=== PATIENT | female | born 1965 | race Caucasian/White ===

== ENCOUNTER 2016-10-20 01:33 | Emergency (ER) | payer SELFPAY ==
[~2016-10-20] VITALS: Ht 162.6 cm; Wt 55.0 kg
[2016-10-20 01:36] VITALS: Ht 162.6 cm; Wt 55.0 kg
[2016-10-20] MEDS ORDERED: CEPH-443 PO (02:51)
[2016-10-20] MEDS ORDERED: IBUP-1542 PO (02:51)
[2016-10-20] MEDS ORDERED: SULF1TAB31 PO (02:51)
[2016-10-20] MEDS ORDERED: ERYTOPOI RIGHT EYE (02:51)
--- NOTE | 2016-10-20 03:30 | ERD ---
ER Documentation Chief Complaint Date/Time DATE: 10/20/16 TIME: 03:21 Chief Complaint right upper eyelid swelling since yesterday HPI 51-year-old female presents here in emergency department for complaint of right upper eyelid redness and swelling that started yesterday. Noticed a pimple in the right upper eyelid. Patient discussed pain or sharp pain, succession scale, worse upon touching the area. Patient denies any vision changes. Patient denies any trauma in the eye. Patient denies any fever or chills. ROS All systems reviewed and are negative except as per history of present illness. Medications Home Meds Active Scripts Ibuprofen* (Motrin*) 600 Mg Tab, 600 MG PO Q6H Y for PAIN AND OR ELEVATED TEMP, #30 TAB Prov:MICHAEL LERNER NP 10/20/16 Erythromycin* (Erythromycin* Ophthalmic) 1 Applic Oint, 1 APPLIC RIGHT EYE QID for 7 Days Prov:MICHAEL LERNER NP 10/20/16 Cephalexin* (Keflex*) 500 Mg Capsule, 500 MG PO QID for 10 Days, CAP Prov:MICHAEL LERNER NP 10/20/16 Sulfamethoxazole/Trimethoprim* (Bactrim Ds* Tablet) 1 Each Tablet, 1 TAB PO BID , #20 TAB Prov:MICHAEL LERNER NP 10/20/16 Allergies Allergies: Coded Allergies: acetaminophen (Verified Allergy, Unknown, 10/20/16) PMhx/Soc Medical and Surgical Hx: pt denies Medical Hx, pt denies Surgical Hx History of Surgery: No (PT DENIES MEDICAL AND SURGICAL HX.) Hx Alcohol Use: No Hx Substance Use: No Hx Tobacco Use: No Smoking Status: Never smoker FmHx Family History: No coronary disease, No diabetes, No other Physical Exam Vitals Vital Signs Date Time Temp Pulse Resp B/P Pulse Ox O2 Delivery O2 Flow Rate FiO2 10/20/16 01:36 97.8 83 20 121/59 98 Physical Exam GENERAL: The patient is well developed and appropriate for usual state of health, in no apparent distress. HEENT: Atraumatic. Right upper eyelid redness and swelling with noted stye the right upper eyelid. No redness and swelling surrounding the eye. Bilateral eyes are PERRL EOMI intact. Ears: Normal tympanic membrane, no erythema or bulging. No ear canal swelling. No ear discharge. Nose: normal nasal turbinates, no erythema or swelling. Normal nasal discharge. Throat: oropharynx clear. No tonsillar swelling or tonsillar exudates. No lymphadenopathy. CHEST: Clear to auscultation bilaterally. There are no rales, wheezes or rhonchi. HEART: Regular rate and rhythm. No murmurs, clicks, rubs or gallops. No S3 or S4. ABDOMEN: Soft, nontender and nondistended. Good bowel sounds. No rebound or guarding. No gross peritonitis. No gross organomegaly or masses. No Cantor sign or McBurney point tenderness. BACK: No midline or flank tenderness. EXTREMITIES: Equal pulses bilaterally. There is no peripheral clubbing, cyanosis or edema. No focal swelling or erythema. Full range of motion. Grossly neurovascularly intact. NEURO: Alert and oriented. Cranial nerves 2-12 intact. Motor strength in all 4 extremities with 5/5 strength. Sensation grossly intact. Normal speech and gait. SKIN: There is no apparent rash or petechia. The skin is warm and dry. HEMATOLOGIC AND LYMPHATIC: There is no evidence of excessive bruising or lymphedema. No gross cervical, axillary, or inguinal lymphadenopathy. Procedures/MDM Decision making: Patient's right upper eyelid redness and swelling with most likely consistent with blepharitis, no symptoms of orbital cellulitis periorbital cellulitis. No symptoms of eye emergencies, no suspicion for any acute glaucoma. Patient does not have any vision changes. Patient denies any deformity sensation eye. Patient denies any fever or chills. Patient does not have any eye discharge. Prescription was given for erythromycin ophthalmic ointment, ibuprofen, Keflex and Bactrim, is advised to follow-up with primary doctor 2-3 days, apply warm compresses on affected area. Patient was advised to return to emergency department for any worsening symptoms. Departure Diagnosis: Primary Impression: Hordeolum externum (stye) Laterality: right Eyelid: upper Qualified Code: H00.011 - Hordeolum externum of right upper eyelid Additional Impression: Blepharitis Blepharitis type: unspecified type Laterality: right Eyelid: upper Qualified Code: H01.001 - Blepharitis of right upper eyelid, unspecified type Condition: Stable Patient Instructions: Es Clarke CARLA MAE T. NP Oct 20, 2016 03:30
== END 2016-10-20 03:09 | disposition home or self-care (01) ==
LOC: FTE 01:33
DX: H00.011 Hordeolum externum right upper eyelid (principal); H01.001 Unspecified blepharitis right upper eyelid
CPT/HCPCS: 99284